=== PATIENT | female | born 1945 | race Hispanic/Latino ===

== ENCOUNTER 2017-05-06 10:42 | Outpatient (CLI) | payer MEDICARE, OTHER ==
--- NOTE | 2017-05-07 09:43 | Mammography Report ---
BILATERAL DIGITAL SCREENING MAMMOGRAM WITH CAD. Comparison study is dated April 18, 2016. FINDINGS: The breasts are fatty replaced. Minimal postbiopsy changes in the upper-outer right breast are stable. A few benign-appearing microcalcifications are noted on the right. No suspicious groupings or pleomorphism. IMPRESSION: Stable benign findings. BI-RADS CATEGORY: 2 = Benign ACR BI-RADS MAMMOGRAPHIC CODES: 0 = Needs additional imaging evaluation; 1 = Negative; 2 = Benign; 3 = Probably benign; 4 = Suspicious; 5 = Malignant; 6 = Known biopsy-proven malignancy COMMENT: 1. Dense breast tissue, i.e., adenosis, fibrocystic changes, etc., may obscure an underlying neoplasm. 2. Approximately 10% of cancers are not detected with mammography. 3. A negative mammography report should not delay biopsy if a clinically suspicious mass is present. RECOMMENDATION: Annual screening.
== END 2017-05-06 10:43 | disposition home or self-care (01) ==
LOC: MAMMO 10:42
PROVIDERS: ATTEND Obstetrics & Gynecology
DX: Z12.31 Encounter for screening mammogram for malignant neoplasm of breast (principal); I10 Essential (primary) hypertension
CPT/HCPCS: 77067; G0202

== ENCOUNTER 2018-05-07 10:20 | Outpatient (CLI) | payer MEDICARE, OTHER ==
--- NOTE | 2018-05-08 08:51 | Mammography Report ---
BILATERAL DIGITAL SCREENING MAMMOGRAM with CAD: 05/07/18 10:20:00 CLINICAL: Routine screening.History of a right benign surgical biopsy 40+ years ago. COMPARISON:05/06/17 FINDINGS: The breasts are almost entirely fatty.Stable right upper outer benign postsurgical scar. No mass, architectural distortion or suspicious calcifications. IMPRESSION: No mammographic evidence of malignancy. BI-RADS CATEGORY: 2 -- Benign RECOMMENDATION: Routine mammographic screening in one year. COMMENT: Patient follow-up letters are generated by our [employer] application.
== END 2018-05-07 10:21 | disposition home or self-care (01) ==
LOC: MAMMO 10:20
PROVIDERS: ATTEND Obstetrics & Gynecology
DX: Z12.31 Encounter for screening mammogram for malignant neoplasm of breast (principal); I10 Essential (primary) hypertension; M19.90 Unspecified osteoarthritis, unspecified site; K21.9 Gastro-esophageal reflux disease without esophagitis; Z90.710 Acquired absence of both cervix and uterus; Z91.041 Radiographic dye allergy status
CPT/HCPCS: 77067

== ENCOUNTER 2018-06-02 12:22 | Outpatient (CLI) | payer MEDICARE, OTHER ==
--- NOTE | 2018-06-02 14:00 | Mammography Report ---
BONE DENSITY STUDY: Postmenopausal osteoporosis screening. DEFINITIONS: BMD = Bone Mineral Density T-score = BMD related to mean peak bone mass of young adult (mean expressed in Standard Deviation) Z-score = Age matched BMD expressed in SD World Health Organization (WHO) Diagnostic Criteria Normal T-score > -1 SD Osteopenia T-score between -1 and -2.4 SD Osteoporosis T-score -2.5 SD or below FINDINGS: The weighted average BMD of lumbar spine L1-L4 is 0.982 with a T-score of -0.6. The weighted average BMD of the left hip is 0.907 with a T-score of -0.3. The femoral neck BMD is 0.611 with a T. value score of -2.1. Compared to her prior exam in April 2016 there has been improvement in the mineralization of L3 and L4 with an otherwise relatively stable exam. IMPRESSION: The patient's average T-score is diagnostic for normal bone density and low relative risk for fracture. NOTE: BMD is not the only risk factor for fracture; also consider factors such as the patient's age, risk of falling, previous osteoporotic fracture, family history of osteoporotic fractures, current smoker, and low body weight. Saucedo's triangle is a region of interest in femur, predominantly of trabecular bone. It is not a true anatomic site, and ISCD does not recommend its use clinically.
== END 2018-06-02 12:23 | disposition home or self-care (01) ==
LOC: MAMMO 12:22
PROVIDERS: ATTEND Obstetrics & Gynecology
DX: Z13.820 Encounter for screening for osteoporosis (principal); M85.80 Other specified disorders of bone density and structure, unspecified site; I10 Essential (primary) hypertension; K21.9 Gastro-esophageal reflux disease without esophagitis; M19.90 Unspecified osteoarthritis, unspecified site; Z78.0 Asymptomatic menopausal state; Z90.710 Acquired absence of both cervix and uterus
CPT/HCPCS: 77080

== ENCOUNTER 2018-07-21 11:18 | Outpatient (CLI) | payer MEDICARE, OTHER ==
--- NOTE | 2018-07-21 15:26 | Cat Scan Report ---
FINAL REPORT EXAM: CT ABDOMEN WO CON HISTORY: Other lack of coordination TECHNIQUE: Spiral CT scanning of the abdomen. No oral or IV contrast administered. Multiplanar reformations. PRIORS: None. FINDINGS: Abdomen: Examination limited due to lack of contrast administration. Visualized lung bases show mild atelectatic change or scarring bilaterally. Gallstone noted in the gallbladder neck without significant pericholecystic fluid collection. Liver enlarged and shows decreased attenuation without focal abnormality. Spleen grossly unremarkable. Pancreas shows fatty infiltration in pancreatic head. Otherwise, grossly unremarkable. Approximately 1 cm calcification noted in the right kidney, without significant hydronephrosis. Left kidney grossly unremarkable. Left adrenal nodule measuring approximately 2.5 cm, with fat attenuation, compatible with adenomatous change. Right adrenal gland grossly unremarkable. Visualized bowel grossly unremarkable. Appendix is not confidently identified. No significant free peritoneal fluid or loculated fluid collection. Abdominal aorta non-aneurysmal. Degenerative change in the thoracic spine. IMPRESSION: 1. Cholelithiasis. 2. Findings compatible with hepatomegaly and fatty infiltration in the liver. 3. Nonobstructing right renal calcification. No significant right hydronephrosis.
== END 2018-07-21 11:19 | disposition home or self-care (01) ==
LOC: CT 11:18
PROVIDERS: ATTEND Internal Medicine Endocrinology, Diabetes & Metabolism
DX: K80.20 Calculus of gallbladder without cholecystitis without obstruction (principal); R16.0 Hepatomegaly, not elsewhere classified; K76.0 Fatty (change of) liver, not elsewhere classified; N28.89 Other specified disorders of kidney and ureter; I10 Essential (primary) hypertension; K21.9 Gastro-esophageal reflux disease without esophagitis; Z90.710 Acquired absence of both cervix and uterus; M19.90 Unspecified osteoarthritis, unspecified site
CPT/HCPCS: 74150

== ENCOUNTER 2020-05-11 11:05 | Outpatient (CLI) | payer MEDICARE ==
--- NOTE | 2020-05-13 08:46 | Mammography Report ---
DIGITAL SCREENING MAMMOGRAM WITH CAD, 05/11/2020 INDICATION: Routine screening mammography. TECHNIQUE: Digital bilateral 2D mammography was obtained in the craniocaudal and mediolateral obliq ue projections. This examination was interpreted with the benefit of Computer-Aided Detection analysi s. COMPARISON: 05/07/2018, 05/06/2017 FINDINGS: Breast Density: The breasts are almost entirely fatty. There is no evidence of dominant mass, suspicious calcifications or architectural distortion in eithe r breast. Postsurgical change in the right breast is stable. IMPRESSION: Follow up recommendation: Routine yearly BI-RADS Category 2: Benign. A "normal" or negative report should not discourage follow up or biopsy of a clinically significant f inding. A written summary of these findings will be mailed to the patient. The patient will be entered into a mammography reporting system which will generate a reminder letter for the patient's next appointmen t at the appropriate interval. The [employer] recommends yearly mammograms starting at age 40 and continuing as l shea as a woman is in good health. Breast MRI is recommended for women with an approximate 20-25% or greater lifetime risk of breast cancer, including women with a strong family history of breast or ova jasmin cancer or who have been treated for Hodgkin's disease. Signer Name: Homero Flannery MD Signed: 05/13/2020 8:41 AM Workstation Name: [id number]
== END 2020-05-11 11:06 | disposition home or self-care (01) ==
LOC: MAMMO 11:05
PROVIDERS: ATTEND Obstetrics & Gynecology
DX: Z12.31 Encounter for screening mammogram for malignant neoplasm of breast (principal)
CPT/HCPCS: 77067

== ENCOUNTER 2021-04-03 12:13 | Outpatient (CLI) | payer MEDICARE ==
--- NOTE | 2021-04-03 13:29 | Cat Scan Report ---
CT head/brain wo con INDICATION: DIZZINESS. TECHNIQUE: All CT scans at this location are performed using CT dose reduction for ALARA by means of automated e xposure control. COMPARISON: None available. FINDINGS: There is no evidence of hemorrhage, hydrocephalus, brain edema, or mass effect/mass lesion. There is mild generalized ventricular and cisternal prominence commensurate with the patient's age. There is n ormal resendiz-white differentiation. The included paranasal sinuses and mastoid air cells are clear. The orbits appear unremarkable. IMPRESSION: 1. No acute intracranial abnormality or findings to explain dizziness. Signer Name: Jaspreet Cardoaz MD Signed: 04/03/2021 1:24 PM Workstation Name: [id number]
== END 2021-04-03 12:14 | disposition home or self-care (01) ==
LOC: CT 12:13
PROVIDERS: ATTEND Family Medicine
DX: R42 Dizziness and giddiness (principal)
CPT/HCPCS: 70450

== ENCOUNTER 2021-04-20 17:13 | Emergency (ER) | payer MEDICARE ==
[2021-04-20] MEDS ORDERED: ACETAMINOPHEN 500 MG TAB PO ONE (19:35)
[2021-04-20] MEDS ORDERED: SODIUM CHLORIDE 0.9% 1000 ML 1,000 ML IV ONE (19:35)
[2021-04-20 20:15] LABS: Basophils # (Auto) 0.1 K/mm3 (0.0-0.1); Basophils % (Auto) 0.5 % (0.0-1.8); Eosinophils % (Auto) 0.4 % (0.0-4.3); Hematocrit 40.8 % (30.3-42.9); Hemoglobin 13.7 gm/dl (10.1-14.3); Lymphocytes # (Auto) 1.1 K/mm3 (1.2-5.4); Mean Corpuscular HGB Conc 34 % (30-34); Mean Corpuscular Volume 96 fl (79-97); Monocytes # (Auto) 0.8 K/mm3 (0.0-0.8); Monocytes % (Auto) 8.1 % (0.0-7.3); Platelet Count 308 K/mm3 (140-440); Red Blood Count 4.25 M/mm3 (3.65-5.03); Red Cell Distribution Width 13.9 % (13.2-15.2)
[2021-04-20 20:19] LABS: Alanine Aminotransferase 8 units/L (7-56); Albumin 4.4 g/dL (3.9-5); BUN/Creatinine Ratio 23; Blood Urea Nitrogen 18 mg/dL (7-17); Hemolysis Index 29
--- NOTE | 2021-04-20 20:22 | XRay Report ---
CHEST 1 VIEW 04/20/2021 7:13 PM INDICATION / CLINICAL INFORMATION: FEVER. COMPARISON: None available. FINDINGS: SUPPORT DEVICES: None. HEART / MEDIASTINUM: No significant abnormality. LUNGS / PLEURA: Mild increased interstitial prominence within the lungs however no focal consolidatio n. No pneumothorax. Signer Name: Ortiz Basilio MD Signed: 04/20/2021 8:18 PM Workstation Name: [id number]
--- NOTE | 2021-04-20 20:39 | Emergency Department Report ---
ED General Adult HPI - General Chief complaint: Hyperglycemia Stated complaint: HYPERGLYCEMIA Source: patient Mode of arrival: Ambulatory Limitations: No Limitations - History of Present Illness Initial comments: Patient is a 75-year-old white female with a history of hypertension, ait-mjzflac-oxpnganmv diabetes, IBS, GERD, chronic osteoarthritis and kidney stones who presents to the ED with complaint of generalized weakness, chills and fatigue for the last 24 hours. Patient states that she received her second Moderna COVID-19 vaccination 24 hours and since then her symptoms have gotten worse. Patient also complains of lack of appetite for the last 12 hours. Patient states that no one else at home has had similar symptoms. Patient states that she was concerned that her blood sugar may have been elevated and came to the ED for evaluation. Patient denies cough, dizziness, syncope, chest pain or shortness of breath, abdominal pain, nausea, vomiting, diarrhea, dysu lara, urinary frequency and urgency or back pain, nasal and sinus congestion. MD Complaint: Generalized weakness and fatigue; hyperglycemia -: Sudden, hour(s) (24) Radiation: non-radiation Severity scale (0 -10): 3 Quality: aching, dull Consistency: constant Improves with: none Worsens with: none Associated Symptoms: denies other symptoms, fever/chills, loss of appetite, ma laise, weakness. denies: confusion, chest pain, cough, diaphoresis, headaches, nausea/vomiting, rash, seizure, shortness of breath, syncope Treatments Prior to Arrival: none - Related Data Previous Rx's Medication Instructions Recorded Last Taken Type traMADoL [Ultram] 50 mg PO Q6HR PRN #20 tablet 10/09/14 Unknown Rx Allergies Allergy/AdvReac Type Severity Reaction Status Date / Time IV CONTRAST Allergy Hives Uncoded 10/09/14 14:08 ED Review of Systems ROS: Stated complaint: HYPERGLYCEMIA Other details as noted in HPI Constitutional: malaise, weakness. denies: chills, fever Eyes: denies: eye pain, eye discharge, vision change ENT: denies: ear pain, throat pain Respiratory: denies: cough, shortness of breath, SOB with exertion, wheezing Cardiovascular: denies: chest pain, palpitations Endocrine: no symptoms reported Gastrointestinal: denies: abdominal pain, nausea, vomiting, diarrhea Genitourinary: denies: urgency, dysuria, discharge Musculoskeletal: arthralgia, myalgia. denies: back pain, joint swelling Skin: denies: rash, lesions Neurological: denies: headache, weakness, paresthesias Psychiatric: denies: anxiety, depression Hematological/Lymphatic: denies: easy bleeding, easy bruising ED Past Medical Hx - Past Medical History Previous Medical History?: Yes Hx Hypertension: Yes Hx Diabetes: Yes Hx GERD: Yes Hx Arthritis: Yes Hx Kidney Stones: Yes Additional medical history: CATARACTS. IBS - Surgical History Hx Breast Surgery: Yes (BIOPSIES) Additional Surgical History: PARTIAL THYROIDECTOMY. PARTIAL HYSTERECTOMY. RECTOCELE REPAIR. COLD CONE. TONSILLECTOMY. D & C. RIGHT KNEE SURGERY - Social History Smoking Status: Never Smoker Substance Use Type: None - Medications Home Medications: Home Medications Medication Instructions Recorded Confirmed Last Taken Type traMADoL [Ultram] 50 mg PO Q6HR PRN #20 tablet 10/09/14 Unknown Rx ED Physical Exam - General Limitations: No Limitations General appearance: alert, in no apparent distress - Head Head exam: Present: atraumatic, normocephalic, normal inspection - Eye Eye exam: Present: normal appearance, PERRL, EOMI Pupils: Present: normal accommodation - ENT ENT exam: Present: normal exam, normal orophraynx, mucous membranes moist, TM's normal bilaterally, normal external ear exam - Neck Neck exam: Present: normal inspection, full ROM - Respiratory Respiratory exam: Present: normal lung sounds bilaterally. Absent: respiratory distress, wheezes, rales, rhonchi, chest wall tenderness, accessory muscle use, decreased breath sounds, prolonged expiratory - Cardiovascular Cardiovascular Exam: Present: regular rate, normal rhythm, normal heart sounds. Absent: systolic murmur, diastolic murmur, rubs, gallop - GI/Abdominal GI/Abdominal exam: Present: soft, normal bowel sounds. Absent: tenderness, guarding, rebound, hyperactive bowel sounds, hypoactive bowel sounds, organomegaly - Extremities Exam Extremities exam: Present: normal inspection, full ROM, normal capillary refill - Back Exam Back exam: Present: normal inspection, full ROM. Absent: tenderness, CVA tenderness (R), CVA tenderness (L), muscle spasm, paraspinal tenderness, vertebral tenderness - Neurological Exam Neurological exam: Present: alert, oriented X3, CN II-XII intact, normal gait, reflexes normal - Psychiatric Psychiatric exam: Present: normal affect, normal mood - Skin Skin exam: Present: warm, dry, intact, normal color. Absent: rash ED Course Vital Signs 04/20/21 17:44 Temperature 100.5 F H Pulse Rate 94 H Respiratory 19 Rate Blood Pressure 110/74 [Right] O2 Sat by Pulse 95 Oximetry ED Medical Decision Making - Lab Data Result diagrams: 04/20/21 19:43 04/20/21 19:43 - Radiology Data Radiology results: report reviewed, image reviewed [facility] [address] [place] [address] XRay Report Signed Patient: JAIDA AMES MR#: [id number] : 1945 Acct:[id number] Age/Sex: 75 / F ADM Date: 04/20/21 Loc: ED Attending Dr: Ordering Physician: BOUBACAR ZAMBRANO Date of Service: 04/20/21 Procedure(s): XR chest 1V ap Accession Number(s): [id number] cc: BOUBACAR ZAMBRANO Fluoro Time In Minutes: CHEST 1 VIEW 04/20/2021 7:13 PM INDICATION / CLINICAL INFORMATION: FEVER. COMPARISON: None available. FINDINGS: SUPPORT DEVICES: None. HEART / MEDIASTINUM: No significant abnormality. LUNGS / PLEURA: Mild increased interstitial prominence within the lungs however no focal consolidation. No pneumothorax. Signer Name: Ortiz Demarco MD Signed: 04/20/2021 8:18 PM Workstation Name: [id number] Transcribed By: CW Dictated By: MALLORIE DEMARCO MD Electronically Authenticated By: MALLORIE DEMARCO MD Signed Date/Time: 04/20/212017 DD/ 17 TD/TT: - Medical Decision Making This is a 75-year-old white female with a history of hypertension, dne-lfjfpsf-lnbanzbpy diabetes, IBS, GERD, chronic osteoarthritis and kidney stones who presents to the ED with complaint of generalized weakness, chills and fatigue for the last 24 hours. Patient states that she received her second Moderna COVID-19 vaccination 24 hours and since then her symptoms have gotten worse. Patient also complains of lack of appetite for the last 12 hours. Patient states that no one else at home has had similar symptoms. Patient states that she was concerned that her blood sugar may have been elevated and came to the ED for evaluation. In the ED, patient is alert and oriented x3 and is not in any distress. Patient is however febrile in triage. Lab test results were reviewed and are all nonactionable except for BUN of 18 and hyperglycemia 189 mg/dL. The rest of the lab test results are nonactionable. Patient was treated for fever with Tylenol in the ED. Chest x-ray showed no acute cardiopulmonary abnormalities or pneumonitis. On reevaluation, the vital signs are stable, patient felt better and was discharged home and advised to drink plenty of fluids and follow-up with her primary care physician in 5 to 7 days for reevaluation. Patient was advised return to the ED immediately if symptoms get worse. - Differential Diagnosis URI; viral syndrome; bronchitis; dehydration; hyperglycemia Critical care attestation.: If time is entered above; I have spent that time in minutes in the direct care of this critically ill patient, excluding procedure time. ED Disposition Clinical Impression: Generalized weakness, Dehydration, Post-vaccination fever Hyperglycemia due to type 2 diabetes mellitus Qualifiers: Diabetes mellitus halfway insulin use: without halfway use Qualified Code(s): E11.65 - Type 2 diabetes mellitus with hyperglycemia Disposition: DC-01 TO HOME OR SELFCARE Is pt being admited?: No Does the pt Need Aspirin: No Condition: Stable Instructions: Weakness, Swcc-zt-Hfpk, Diabetes Mellitus Type 2 in Adults (ED), Dehydration, Adult, Mfbb-yf-Vwoh, Hyperglycemia, Myys-jp-Pbfc, Type 2 Diabetes Mellitus, Self Care, Adult, Mxmu-mw-Heqz Additional Instructions: Take your regular medications, drink plenty of fluids and follow-up with your primary care physician in 5 to 7 days for reevaluation. Return to the ED immediately if symptoms get worse. Referrals: [facility] [Provider Group] - 3-5 Days Time of Disposition: 20:36 Print Language: UZBEK
[2021-04-20 20:46] VITALS: BP 136/64
== END 2021-04-20 21:02 | disposition home or self-care (01) ==
LOC: ED 17:13
DX: E11.65 Type 2 diabetes mellitus with hyperglycemia (principal); E86.0 Dehydration; R53.1 Weakness; R50.83 Postvaccination fever; I10 Essential (primary) hypertension; K21.9 Gastro-esophageal reflux disease without esophagitis; M19.90 Unspecified osteoarthritis, unspecified site; Z90.710 Acquired absence of both cervix and uterus; Z79.899 Other long term (current) drug therapy; Z91.041 Radiographic dye allergy status; Z98.890 Other specified postprocedural states; Z87.442 Personal history of urinary calculi
CPT/HCPCS: 36415; 71045; 80053; 82962; 85025

== ENCOUNTER 2021-05-01 09:50 | Outpatient (CLI) | payer MEDICARE ==
--- NOTE | 2021-05-01 13:24 | Cat Scan Report ---
CT HEAD WITHOUT CONTRAST INDICATION / CLINICAL INFORMATION: DIZZINESS. TECHNIQUE: All CT scans at this location are performed using CT dose reduction for ALARA by means of automated exposure control. COMPARISON: CT head 04/03/2021 FINDINGS: HEMORRHAGE: None. EXTRA-AXIAL SPACES: Normal in size and morphology for the patient's age. VENTRICULAR SYSTEM: Normal in size and morphology for the patient's age. CEREBRAL PARENCHYMA: No significant abnormality. No acute territorial infarct. MIDLINE SHIFT / HERNIATION: None. CEREBELLUM / BRAINSTEM: No significant abnormality. ORBITS: Normal as visualized. SOFT TISSUES: No significant abnormality. SKULL: No significant abnormality. PARANASAL SINUSES / MASTOID AIR CELLS: Hypoplastic left maxillary sinus with mucous retention cyst in the floor. The remaining paranasal sinuses and mastoid air cells are clear ADDITIONAL FINDINGS: None. IMPRESSION: 1. No acute intracranial abnormality. Stable exam from 04/03/2021. Signer Name: Uri Duncan MD Signed: 05/01/2021 1:19 PM Workstation Name: [id number]
== END 2021-05-01 09:51 | disposition home or self-care (01) ==
LOC: CT 09:50
PROVIDERS: ATTEND Psychiatry & Neurology Neurology
DX: R42 Dizziness and giddiness (principal); M27.40 Unspecified cyst of jaw
CPT/HCPCS: 70450

== ENCOUNTER 2021-09-03 09:22 | Outpatient (CLI) | payer MEDICARE ==
--- NOTE | 2021-09-03 14:59 | Mammography Report ---
DIGITAL SCREENING MAMMOGRAM WITH CAD, 09/03/2021 CLINICAL INFORMATION / INDICATION: Routine screening mammography. TECHNIQUE: Digital bilateral 2D mammography was obtained in the craniocaudal and mediolateral obliqu e projections. This examination was interpreted with the benefit of Computer-Aided Detection analysis . COMPARISON: 05/07/2018 FINDINGS: Breast Density: The breasts are almost entirely fatty. No dominant mass, suspicious calcifications, or architectural distortion in either breast. Postsurgical scar, right breast. Overall, no interval change. IMPRESSION: No mammographic evidence of malignancy. Follow up recommendation: Routine yearly BI-RADS Category 2: Benign. A "normal" or negative report should not discourage follow up or biopsy of a clinically significant f inding. A written summary of these findings will be mailed to the patient. The patient will be entered into a mammography reporting system which will generate a reminder letter for the patient's next appointmen t at the appropriate interval. The [employer] recommends yearly mammograms starting at age 40 and continuing as l shea as a woman is in good health. Breast MRI is recommended for women with an approximate 20-25% or greater lifetime risk of breast cancer, including women with a strong family history of breast or ova jasmin cancer or who have been treated for Hodgkin's disease. Signer Name: Milli Velazquez MD Signed: 09/03/2021 2:54 PM Workstation Name: [id number]
== END 2021-09-03 09:23 | disposition home or self-care (01) ==
LOC: MAMMO 09:22
PROVIDERS: ATTEND Obstetrics & Gynecology
DX: Z12.31 Encounter for screening mammogram for malignant neoplasm of breast (principal)
CPT/HCPCS: 77067